=== PATIENT | male | born 1940 | race Caucasian/White ===

== ENCOUNTER 2018-01-30 15:50 | Inpatient (IN) | payer MEDICARE, OTHER ==
[~2018-01-30] VITALS: Ht 165.1 cm; Wt 64.4 kg
[2018-01-30 17:46] LABS: Basophils # (auto) 0 uL; Basophils % (auto) 0.6 % (0.0-2.0); Eosinophils # (auto) 0 uL; Hematocrit 36.1 % (41.0-53.0); Hemoglobin 12.3 g/dL (13.5-17.5); Lymphocytes # (auto) 0.9 uL; Lymphocytes % (auto) 18.6 % (10.0-50.0); Mean Corpuscular Hemoglobin 29.7 pg (28.0-32.0); Mean Corpuscular Hgb Conc. 34.2 g/dL (32.0-36.0); Mean Corpuscular Volume 86.8 fL (80.0-100.0); Monocytes # (auto) 0.2 uL; Neutrophils # (auto) 3.6 uL; Neutrophils % (auto) 74.8 % (37.0-80.0); Platelet Count (auto) 387 10^3/uL (140-450); Red Blood Cells 4.15 10^6/uL (4.5-5.90); Red Cell Distribution Width 13.9 % (11.8-14.3); White Blood Cell 4.8 10^3/uL (4.4-10.8)
[2018-01-30 17:53] LABS: Alanine Aminotransferase 21 U/L (16-61); Albumin 2.3 g/dL (3.4-5.0); Anion Gap 11 (5-15); Aspartate Aminotransferase 25 U/L (15-37); BUN/Creatinine Ratio 15.7; Blood Urea Nitrogen 8 mg/dL (7-18); Calcium 7.1 mg/dL (8.5-10.1); Carbon Dioxide 27 mmol/L (21-32); Chloride 99 mmol/L (98-107); GFR African American 202 mL/min; GFR Non-African American 167 mL/min; Glucose 91 mg/dL (74-106); Magnesium 1.6 mg/dL (1.6-2.6); Sodium 137 mmol/L (136-145)
[2018-01-30 17:58] LABS: Alkaline Phosphatase 151 U/L (45-117); Bilirubin, Total 0.4 mg/dL (0.2-1.0); Total Protein 5.3 g/dL (6.4-8.2)
[2018-01-30 18:01] LABS: Potassium 2.8 mmol/L (3.5-5.1)
[2018-01-30] MEDS ORDERED: POTASSIUM CHL 20 Meq TABLET PO ONE ×2 (18:30)
[2018-01-30] MEDS ORDERED: cloNIDine HCL 0.1 MG TAB PO ONE (19:15)
[2018-01-30] MEDS ORDERED: cloNIDine HCL 0.1 MG TAB PO PRN (20:30)
[2018-01-30] MEDS ORDERED: ATORVASTATIN 20 MG TAB PO ONE (20:30)
[2018-01-30] MEDS ORDERED: HYDROcodone-ACET 5/325MG TAB PO PRN (20:30)
[2018-01-30] MEDS ORDERED: ONDANSETRON HCL 4 MG/2 ML VIAL IV PRN (20:30)
[2018-01-30] MEDS ORDERED: TEMAZEPAM 15 MG CAP PO PRN (20:30)
[2018-01-30] MEDS: ACETAMINOPHEN 325 MG TAB PO PRN ×2 (20:43→21:59)
[2018-01-30] MEDS ORDERED: LEVETIRACETAM 500 MG TAB PO ONE (21:45)
[2018-01-30] MEDS ORDERED: LEVETIRACETAM 500 MG TAB PO SCH (22:00)
[2018-01-30] MEDS ORDERED: TERAZOSIN HCL 1 MG CAP PO SCH (22:00)
[2018-01-30] MEDS: GABAPENTIN 100 MG CAP PO SCH (22:01)
[2018-01-30] MEDS: FAMOTIDINE 20 MG TAB PO SCH (22:01)
[2018-01-30 23:58] VITALS: BP 125/70
[2018-01-31] MEDS ORDERED: ASPI81TA27 PO (01:56)
[2018-01-31] MEDS ORDERED: METF-370 PO (01:56)
[2018-01-31] MEDS ORDERED: SIMV-8 PO (01:56)
[2018-01-31] MEDS ORDERED: HYDR-392 PO (01:56)
[2018-01-31] MEDS ORDERED: PANT40TA2 PO (01:56)
[2018-01-31] MEDS ORDERED: TERA1CAP33 PO (01:56)
[2018-01-31] MEDS ORDERED: RISP0.5T45 PO (01:56)
[2018-01-31] MEDS ORDERED: LEVE100020 PO (01:56)
[2018-01-31] MEDS ORDERED: GABA100C9 PO (01:56)
[2018-01-31] MEDS ORDERED: [UNRECOGNIZED DRUG - CODE] PO (01:56)
[2018-01-31] MEDS ORDERED: ACET1CAP2 PO (01:56)
[2018-01-31] MEDS ORDERED: FURO20TA PO (01:56)
[2018-01-31] MEDS ORDERED: LISI-646 PO (01:56)
[2018-01-31 05:12] VITALS: BP 100/52
[2018-01-31 06:01] LABS: Basophils # (auto) 0 uL; Basophils % (auto) 0.5 % (0.0-2.0); Eosinophils # (auto) 0.2 uL; Eosinophils % (auto) 4.8 % (0.0-7.0); Hematocrit 31.8 % (41.0-53.0); Hemoglobin 10.9 g/dL (13.5-17.5); Lymphocytes # (auto) 1.8 uL; Lymphocytes % (auto) 43.3 % (10.0-50.0); Mean Corpuscular Hemoglobin 29.7 pg (28.0-32.0); Mean Corpuscular Hgb Conc. 34.4 g/dL (32.0-36.0); Mean Corpuscular Volume 86.2 fL (80.0-100.0); Monocytes # (auto) 0.4 uL; Monocytes % (auto) 8.7 % (0.0-12.0); Neutrophils # (auto) 1.7 uL; Neutrophils % (auto) 42.7 % (37.0-80.0); Nucleated Red Blood Cells % 0.2 %; Platelet Count (auto) 286 10^3/uL (140-450); Red Blood Cells 3.69 10^6/uL (4.5-5.90); Red Cell Distribution Width 13.9 % (11.8-14.3); White Blood Cell 4.1 10^3/uL (4.4-10.8)
[2018-01-31 06:11] LABS: Potassium 3.3 mmol/L (3.5-5.1)
[2018-01-31 06:17] LABS: Albumin 1.9 g/dL (3.4-5.0); BUN/Creatinine Ratio 14.6; Calcium 7.3 mg/dL (8.5-10.1)
[2018-01-31 06:21] LABS: Bilirubin, Total 0.6 mg/dL (0.2-1.0); Total Protein 4.5 g/dL (6.4-8.2)
[2018-01-31] MEDS: GABAPENTIN 100 MG CAP PO SCH ×2 (06:27→13:54)
[2018-01-31 08:49] VITALS: BP 117/54
[2018-01-31] MEDS ORDERED: LEVETIRACETAM 500 MG TAB PO SCH (10:00)
[2018-01-31] MEDS ORDERED: LISINOPRIL 20 MG TAB PO SCH (10:00)
[2018-01-31] MEDS ORDERED: ENOXAPARIN SOD 40 MG/0.4 ML SYRINGE SC SCH (10:00)
[2018-01-31] MEDS ORDERED: ASPirin 81 mg TAB PO SCH (10:00)
[2018-01-31] MEDS: FAMOTIDINE 20 MG TAB PO SCH (11:21)
[2018-01-31 11:59] VITALS: BP 115/54
[2018-01-31] MEDS ORDERED: POTASSIUM CHL 20 Meq TABLET PO ONE (16:00)
[2018-01-31 16:50] VITALS: BP 125/68
[2018-01-31 17:32] VITALS: BP 125/68
[2018-01-31] MEDS ORDERED: ATORVASTATIN 20 MG TAB PO SCH (22:00)
== END 2018-01-31 19:03 | disposition home or self-care (01) | DRG 69 ==
LOC: EDUNIT# 15:50 → EDBD 15:50 → ER 15:59 → OVERFLOW 20:23 → WEST WING 22:01
PROVIDERS: ADMIT Nurse Practitioner; ATTEND Hospitalist
DX: G45.9 Transient cerebral ischemic attack, unspecified (principal); I69.354 Hemiplegia and hemiparesis following cerebral infarction affecting left non-dominant side; E87.6 Hypokalemia; G40.909 Epilepsy, unspecified, not intractable, without status epilepticus; G47.00 Insomnia, unspecified; I10 Essential (primary) hypertension; I25.10 Atherosclerotic heart disease of native coronary artery without angina pectoris; I67.2 Cerebral atherosclerosis; Z85.038 Personal history of other malignant neoplasm of large intestine; Z90.49 Acquired absence of other specified parts of digestive tract
CPT/HCPCS: 36415; 70450; 80053; 83735; 84484; 85025; 87081; 93930; G0378